=== PATIENT | male | born 1990 | race Caucasian/White ===

== ENCOUNTER 2019-03-28 13:06 | Emergency (ER) | payer OTHER, SELFPAY ==
[2019-03-28 13:11] VITALS: BP 154/82; PULSE 82; RESP 16; TEMP 37.5; O2SAT 100
--- NOTE | 2019-03-28 14:04 | ED.GENADUL_ITS ---
Discharge Plan Disposition Patient Disposition: HOME Discharge Details Chief Complaint: Abd Prob Clinical Impression: Constipation Primary Care Provider: Michael Benitez ED Provider: Pato Prabhakar Home Meds and New Rx's Prescriptions: New docusate sodium [Dulcolax Stool Softener (dss)] 100 mg capsule 100 mg PO BID Qty: 60 RF: 0 Discharge Instructions Instructions: Constipation (ED) Additional Instructions: Please contact your primary care physician to arrange follow-up. Return to the ER for any worsening or new concerning symptoms. Referrals: Michael Benitez. [Primary Care Provider] - Medical Decision Making 29-year-old male here with 4 days of constipation refractory to milk of magnesia and fleets enema. Patient was given a mineral oil enema here and had large bowel movement. He feels much better. Symptoms completely resolved. Labs reviewed and no electrolyte ab normalities. Usual and customary discharge instructions were provided. Patient was encouraged to follow-up with GI specialist regarding chronic intermittent constipation. HPI General Mode of arrival: ambulatory . Date/Time Provider Initiated Documentation: 03/28/19 13:32 . Limitations to Documentation: no limitations . Information obtained by: patient . HPI Narrative: 29-year-old male with history of intermittent chronic constipation, here with constipation. Patient notes he has not had a bowel movement in 4 days. He states that he saw his primary care physician who prescribed a fleets enema and milk of magnesia. He did try this and notes that he had loose stool around what he perceives as a hard stool that still remains in his rectum. He has a sensation of fullness in his rectum like he needs to have a bowel movement and is unable to. Symptoms are severe. He has some associated left lower abdominal discomfort and fullness. Some nausea. No vomiting. Related Data Home Medications Medication Instructions Recorded Confirmed docusate sodium [Dulcolax Stool 100 mg PO BID #60 cap 03/28/19 Softener (dss)] Previous Rx's Medication Instructions Recorded docusate sodium [Dulcolax Stool 100 mg PO BID #60 cap 03/28/19 Softener (dss)] Allergies Allergy/AdvReac Type Severity Reaction Status Date / Time No Known Allergies Allergy Verified 03/28/19 13:15 General Stated Complaint: Abd Prob NATALI: 3 Review of Systems All systems reviewed & are unremarkable except as noted in HPI and below Constitutional Constitutional: Denies fever(s) Gastrointestinal Gastrointestinal: Reports as per HPI, Denies melena, Denies hematochezia and Reports constipation [facility] Medical History Injury of right shoulder and upper arm (Acute) 2017 no surgery required. Surgical History Tonsillectomy and adenoidectomy (11/12/96) Family History Mother No problems noted. Father Asthma Brother No problems noted. Grandfather Essential hypertension Grandfather No problems noted. Grandmother Personal history of malignant neoplasm LYMPHOMA Grandmother No problems noted. Social History Smoking/Tobacco Use Status: Never Alcohol Intake: current Details: only few times a year Drug use: Never Seatbelt use: always Do you feel safe in your relationship?: Yes Exam Const General: cooperative and no acute distress HENMT Mouth: moist mucous membranes Eyes Conjunctivae: normal conjunctivae Sclera: normal sclerae Resp Auscultation: clear to auscultation bilaterally, no rales, no rhonchi and no wheezes Cardio Jugular venous pressure: no JVD Rate: regular rate and not tachycardic Rhythm: regular rhythm GI Palpation: soft, not firm, no guarding, no masses, not rigid and tender in the LLQ; with no rebound tenderness Course Vital Signs Vital signs: Vital Signs Pulse 82 03/28/19 13:11 Respiratory Rate 16 03/28/19 13:11 Blood Pressure 154/82 H 03/28/19 13:11 Pulse Oximetry 100 03/28/19 13:11 Temperature Source Skin 03/28/19 13:11 Pulse 82 03/28/19 13:11 Respiratory Rate 16 03/28/19 13:11 Respiratory Effort Non-Labored 03/28/19 13:11 Blood Pressure 154/82 H 03/28/19 13:11 Blood Pressure Position Sitting 03/28/19 13:11 Pulse Oximetry 100 03/28/19 13:11 Oxygen Delivery Method Room Air 03/28/19 13:11 Oxygen Flow Rate 0 03/28/19 13:11 Pain Level 6 03/28/19 13:11
[2019-03-28] MEDS: Mineral Oil-Enema 133 ML BTL PR (14:07)
[2019-03-28 14:20] LABS: ALT 42 U/L (16-63); AST 23 U/L (15-37); Albumin 4.3 g/dL (3.4-5.0); Alkaline Phosphatase 85 U/L (46-116); BUN 14 mg/dL (7-18); Bilirubin, Total 0.8 mg/dL (0.2-1.0); CREATININE 0.92 mg/dL (0.70-1.30); Calcium 9.3 mg/dL (8.5-10.1); Chloride 103 mmol/L (98-107); Glucose 93 mg/dL (74-106); Potassium 4.1 mmol/L (3.5-5.1); Sodium 141 mmol/L (136-145)
[2019-03-28 14:34] VITALS: BP 129/71; PULSE 67; O2SAT 97
== END 2019-03-28 14:45 | disposition home or self-care (01) ==
PROVIDERS: Emergency Provider Student in an Organized Health Care Education/Training Program; PCP Family Medicine
DX: K59.09 Other constipation (principal)
CPT/HCPCS: 36415; 80053; 99283

== ENCOUNTER 2019-04-10 08:45 | Emergency (ER) | payer OTHER, SELFPAY ==
[2019-04-10 08:48] VITALS: BP 146/66; PULSE 102; RESP 16; TEMP 36.6; O2SAT 96
--- NOTE | 2019-04-10 09:07 | ED.GENADUL_ITS ---
Discharge Plan Disposition Patient Disposition: HOME Condition: Stable Discharge Details Chief Complaint: GI Bleed Clinical Impression: Bleeding hemorrhoid Primary Care Provider: Michael Benitez ED Provider: Mariela Preston Home Meds and New Rx's Prescriptions: Continued docusate sodium [Dulcolax Stool Softener (dss)] 100 mg capsule 100 mg PO BID Qty: 60 RF: 0 Discharge Instructions Instructions: Hemorrhoids (ED), Rectal Bleeding (ED) Additional Instructions: The bleeding associated with your hemorrhoid to stop with time. You can try applying a gauze pressure dressing if you need to help stop bleeding. Continue to take your Colace while hemorrhoids still present. Avoid prolonged standing or sitting. You can take baths if you develop any worsening rectal pain or hemorrhoids. You can continue to take Tylenol or Motrin, use Preparation H or Tucks pads to help with rectal pain. Follow-up with your primary care doctor within the next week for reevaluation. Return to the emergency department if you develop any worsening or new concerning symptoms. Stand Alone Forms: Work Release Discharge Data Discharge Date/Time-TO BE ENTERED AT DEPARTURE: 04/10/19 11:15 Discharge Physician: Mariela Preston Medical Decision Making 0855 -- 29-year-old male with history of recent constipation treated with enema who now presents with bleeding hemorrhoid since yesterday. Patient was seen here 2 weeks ago for constipation and had treated himself with enema at home and then without relief came to the ED for an enema and his constipation resolved. He states around that time he had intermittent dull aching epigastric and lower abdominal pain which he has had since then. He states he has been able to eat and drink normally, denies fever, urinary symptoms. He states 3 days ago, suddenly at 2 AM awoke with a large grape sized very painful hemorrhoid. He states yesterday the hemorrhoid ruptured and he has had significant relief of pain since then but states it has continuously been bleeding. He states he has been able to have bowel movements and had a normal formed bowel movement last night without any blood. He does still admit to the intermittent epigastric and lower abdominal pain. He states the epigastric pain is somewhat worse with eating spicy foods. He denies any heavy alcohol or drug use, urinary symptoms, fever, nausea or vomiting. Patient has an approximate nickel sized flat hemorrhoid with a 1 cm crusted blood clot in center with mild active oozing of blood. There are no signs of cellulitis or trauma. Patient does admit to feeling weak last night. He denies chest pain, shortness of breath, dizziness or syncope. Will check screening labs including hemoglobin, GI labs. Case discussed with Dr. Bucio who agrees that you could cauterize the bleeding hemorrhoid or reassure patient that it will stop bleeding with time. 1100 --labs reviewed and unremarkable. Normal hemoglobin, white blood cell count, electrolytes. Patient denies any acute complaints. Offered to cauterize area but he declines. He was advised to hold pressure if continues bleeding or apply gauze dressing temporarily. He is advised to use sitz baths as needed to help with any further hemorrhoids. He is advised to follow-up with his primary care doctor return here with any worsening symptoms. HPI General Mode of arrival: ambulatory . Date/Time Provider Initiated Documentation: 04/10/19 08:51 . Limitations to Documentation: no limitations . Information obtained by: patient . History of Present Illness 29 year old M presents to the emergency department with the chief complaint of bleeding hemorrhoid w/ some rectal pain, Quality is described as sharp, Patient started experiencing this day(s) (3) and it has been constant. other things that improve symptom(s), (preparation H enema and cream) No exacerbating factors reported . Patient notes denies confusion, chest pain, cough, diaphoresis, fever/chills, headaches, loss of appetite, malaise, nausea/vomiting, rash, seizure, shortness of breath, syncope and weakness. Patient did receive the following treatments prior to arrival, none Related Data Home Medications Medication Instructions Recorded Confirmed docusate sodium [Dulcolax Stool 100 mg PO BID #60 cap 03/28/19 04/10/19 Softener (dss)] Previous Rx's Medication Instructions Recorded docusate sodium [Dulcolax Stool 100 mg PO BID #60 cap 03/28/19 Softener (dss)] Allergies Allergy/AdvReac Type Severity Reaction Status Date / Time No Known Allergies Allergy Verified 04/10/19 08:53 General Stated Complaint: GI Bleed NATALI: 3 Review of Systems All systems reviewed & are unremarkable except as noted in HPI and below Constitutional Constitutional: Reports as per HPI, Denies chills and Denies fever(s) Eyes Eyes: Denies blurry vision ENT Ears, Nose, Mouth, and Throat: Denies dizziness, Denies sore throat and Denies throat swelling Cardiovascular Cardiovascular: Denies chest pain and Denies dyspnea Respiratory Respiratory: Denies cough and Denies dyspnea Gastrointestinal Gastrointestinal: Reports abdominal pain, Denies diarrhea, Denies vomiting and Reports other (bleeding hemorrhoid) Genitourinary Genitourinary: Denies hematuria and Denies dysuria Musculoskeletal Musculoskeletal: Denies back pain and Denies numbness Integumentary/Breasts Skin/Breast: Denies lesions and Denies rash Neurologic Neurologic: Denies dizziness, Denies focal weakness and Denies numbness Allergic/Immunologic Allergic/Immunologic: Denies throat swelling [facility] Medical History Injury of right shoulder and upper arm (Acute) 2017 no surgery required. Surgical History Tonsillectomy and adenoidectomy (11/12/96) Family History Mother No problems noted. Father Asthma Brother No problems noted. Grandfather Essential hypertension Grandfather No problems noted. Grandmother Personal history of malignant neoplasm LYMPHOMA Grandmother No problems noted. Social History Smoking/Tobacco Use Status: Never Alcohol Intake: current Alcohol Intake frequency: holidays/special occasions only Details: only few times a year Drug use: Never Seatbelt use: always Do you feel safe at home: Yes Do you feel safe in your relationship?: Yes Exam Const General: cooperative, healthy appearing and no acute distress HENMT Head: normal to inspection Face and sinus: normal facial exam Eyes General: appearance normal, both eyes and all related structures EOM: EOM intact bilaterally Neck Neck: normal visual inspection and No submandibular swelling Lymphatic: no lymphadenopathy noted Chest Chest: normal inspection of the chest and no tenderness Resp Effort & Inspection: normal respiratory effort and able to speak in complete sentences Auscultation: clear to auscultation bilaterally Cardio Rate: regular rate Rhythm: regular rhythm GI Inspection: normal to inspection Palpation: soft, not firm, not rigid and tender in the epigastrum (minimal ) Auscultation: normal bowel sounds Rectal Exam: other Other: Approximately 1.5 x 1.5 cm flat hemorrhoid with 1 x 1 cm crusted blood clot in center. No signs of surrounding erythema, edema, ecchymosis, induration, fluctuance red streaking, pus drainage. Skin General skin exam: no rashes or lesions noted Neuro General: alert, awake and oriented x3 Cognition: normal cognition Speech: speech normal Motor: muscle tone normal throughout Sensory Exam: no sensory deficits noted Extrem General: normal to inspection, full ROM, normal capillary refill, no calf tenderness bilaterally and no edema Psych Appearance: grossly normal Mental Status: mental status grossly normal Speech and Movement: speech and movement normal Affect: normal affect Course Vital Signs Vital signs: Vital Signs Temperature 97.9 F 04/10/19 08:48 Pulse 102 H 04/10/19 08:48 Respiratory Rate 16 04/10/19 08:48 Blood Pressure 146/66 H 04/10/19 08:48 Pulse Oximetry 96 04/10/19 08:48 Temperature 97.9 F 04/10/19 08:48 Temperature Source Temporal Artery Scan 04/10/19 08:48 Pulse 102 H 04/10/19 08:48 Respiratory Rate 16 04/10/19 08:48 Respiratory Effort Non-Labored 04/10/19 08:52 Blood Pressure 146/66 H 04/10/19 08:48 Blood Pressure Position Sitting 04/10/19 08:48 Pulse Oximetry 96 04/10/19 08:48 Oxygen Delivery Method Room Air 04/10/19 08:48 Oxygen Flow Rate 0 04/10/19 08:48 Pain Level 0 04/10/19 08:48
[2019-04-10 09:43] LABS: Abs Immature Grans 0.01 k/cumm (0.0-0.09); Absolute Basophil Count 0.03 k/cumm (0.0-0.2); Absolute Lymphocyte Count 1.98 k/cumm (1.2-3.4); Absolute Monocyte Count 0.54 k/cumm (0.11-0.7); Absolute Neutrophil Count 3.68 k/cumm (1.2-6.7); Basophils % 0.5; Eosinophils % 1.6; HCT 43.2 % (40.0-50.0); HGB 14.7 g/dL (13.5-17.5); Immature Grans % 0.2; Lymphocytes % 31.2; Mean Corpuscular Hemoglobin 29.2 pg (27.0-33.0); Mean Corpuscular Volume 85.9 fL (80-95); Mean Platelet Volume 9.6 fL (8.0-11.0); Monocytes % 8.5; Platelet Count 258 x1000/uL (130-400); RBC 5.03 m/cumm (4.50-6.00); RBC Distribution Width 12.8 % (11.8-14.1); White Blood Cell Count 6.34 k/cumm (4.4-10.8)
[2019-04-10 09:56] LABS: ALT 36 U/L (16-63); AST 17 U/L (15-37); Albumin 3.9 g/dL (3.4-5.0); Alkaline Phosphatase 76 U/L (46-116); Anion Gap 8.9 mmol/L (3-11); BUN 15 mg/dL (7-18); Bilirubin, Total 0.4 mg/dL (0.2-1.0); CO2 28.1 mmol/L (21.0-32.0); CREATININE 0.98 mg/dL (0.70-1.30); Calcium 9.1 mg/dL (8.5-10.1); Chloride 106 mmol/L (98-107); Glucose 93 mg/dL (74-106); Lipase 180 U/L (73-393); Potassium 3.8 mmol/L (3.5-5.1); Sodium 143 mmol/L (136-145); Total Protein 7.4 g/dL (6.4-8.2)
[2019-04-10 10:41] VITALS: BP 116/62; PULSE 64; TEMP 37.1; O2SAT 97
[2019-04-10 11:17] VITALS: BP 133/80; PULSE 80; RESP 18; O2SAT 98
== END 2019-04-10 11:15 | disposition home or self-care (01) ==
PROVIDERS: Emergency Provider Physician Assistant; PCP Family Medicine
DX: K62.89 Other specified diseases of anus and rectum (principal); K64.5 Perianal venous thrombosis
CPT/HCPCS: 36415; 80053; 83690; 99283; 85025

== ENCOUNTER 2021-12-19 07:29 | Emergency (ER) | payer OTHER, SELFPAY ==
[2021-12-19 07:33] VITALS: BP 137/76; PULSE 66; RESP 16; TEMP 35.9; O2SAT 100
--- NOTE | 2021-12-19 08:21 | ED.GENADUL_ITS ---
Discharge Plan Disposition Patient Disposition: HOME Condition: Good Discharge Details Chief Complaint: Laceration Clinical Impression: Laceration of left index finger, Laceration of left middle finger, Laceration of left ring finger Primary Care Provider: Michael Benitez ED Provider: Jamarcus Kerr Home Meds and New Rx's Prescriptions: No Action No Known Home Meds Discharge Instructions Instructions: Finger Laceration (ED) Additional Instructions: Please leave the dressing on for 24 hours, then you may remove and begin cleaning the wound at least twice a day with soap and water. Do not directly soak the area. Watch for any signs of infection and return if any increasing redness, swelling, pain, drainage. Please return in the next 7 to 10 days to sal[place] ve the sutures removed. You can come back here and that will be done for free. If you notice any worsening of your symptoms, or any new symptoms such as vomiting, diarrhea, fever, chills, shortness of breath, chest pain, numbness, weakness, or fainting , please return immediately to the emergency department for reevaluation. Please follow up with your primary care provider as soon as possible for reassessment and reevaluation. As always, it was a pleasure participating in your medical care today. Referrals: Michael Benitez MD [Primary Care Provider] - Medical Decision Making 31-year-old male who is right-hand dominant presents today for evaluation of lacerations to his nondominant left hand. He was grabbing a roll of duct tape when he noticed it with a razor blade on it. He had a laceration that developed secondary to accidentally grabbing the razor blade. He came to the ER for further evaluation. Tetanus was last updated over 10 years ago. He denies any numbness or tingling or weakness. He denies any other complaints at this time. Patient demonstrates a 1.5 to 2 cm laceration on the proximal phalanx of the second third and fourth digits. No active bleeding at this time. No evidence of tendon involvement. The lacerations were deep enough that they required suturing. 2 simple interrupted sutures were placed in the second digit, 1 simple interrupted was placed in the third, and 2 simple interrupted's were placed in the fourth. Dermabond was applied over these areas. Patient tole rated this well. No evidence of neurovascular compromise whatsoever. Patient stable for discharge. Tetanus has been updated. Discussed red flags for which to return. I have extensively reviewed the treatment plan and discharge instructions with the patient. I have addressed all patient concerns at this time. The patient was made aware of what symptoms to monitor for that would warrant a return to the emergency department. Discussed the plan with the patient, they demonstrate verbal understanding and agreement with our assessment and plan at this time. The documentation in this chart was dictated using [employer] dictation software. Please excuse any dictation errors. HPI General Date/Time Provider Initiated Documentation: 12/19/21 07:30 . HPI Narrative: 31-year-old male who is right-hand dominant presents today for evaluation of lacerations to his nondominant left hand. He was grabbing a roll of duct tape when he noticed it with a razor blade on it. He had a laceration that developed secondary to accidentally grabbing the razor blade. He came to the ER for further evaluation. Tetanus was last updated over 10 years ago. He denies any numbness or tingling or weakness. He denies any other complaints at this time. Related Data Home Medications Medication Instructions Recorded Confirmed Unknown [No Known Home Meds] 07/14/20 12/19/21 Allergies Allergy/AdvReac Type Severity Reaction Status Date / Time No Known Allergies Allergy Verified 12/19/21 07:36 General Stated Complaint: Laceration NATALI: 4 Review of Systems All systems reviewed & are unremarkable except as noted in HPI and below PFSH All Active Problems Laceration of left index finger (Acute) Laceration of left middle finger (Acute) Laceration of left ring finger (Acute) Medical History Injury of right shoulder and upper arm 2017 no surgery required. Surgical History Tonsillectomy and adenoidectomy (11/12/96) Family History Mother No problems noted. Father Asthma Brother No problems noted. Grandfather Essential hypertension Grandfather No problems noted. Grandmother Personal history of malignant neoplasm LYMPHOMA Grandmother No problems noted. Social History Smoking/Tobacco Use Status: Never Smoking risk assessment performed?: Yes Alcohol Intake: current Alcohol Intake frequency: holidays/special occasions only Details: only few times a year Drug use: Never Seatbelt use: always Do you feel safe at home: Yes Do you feel safe in your relationship?: Yes Exam Narrative Exam Narrative: 1.Const: Well-nourished, Well-developed, appearing stated age 2.Eyes: PERRL, no conjunctival injection, and symmetrical lids. 3.ENT: Atraumatic external nose and ears. Moist MM. Neck: Symmetric, trachea midline, No thyromegaly. 4.CVS: +S1/S2, No murmurs or gallops. Peripheral pulses 2+ and equal in all extremities. Brisk capillary refill in all extremities. 5.RESP: Unlabored respiratory effort. Clear to auscultation bilaterally. No wheezes rales or rhonchi 6.GI: Soft, Nontender/Nondistended, No hepatosplenomegaly. No guarding or rebound. 7.MSK: Normocephalic, Extremities w/o deformity, patient demonstrates a 1.5 to 2 cm laceration at the proximal component of the phalanx on the left hand for the second third and fourth digits. It is on the palmar aspect. Patient demonstrates excellent flexion and extension strength. Lacerations are relatively superficial with no evidence of tendon or bone involvement. No active bleeding at this time. Small excoriation is noted on the fifth digit. No laceration is noted on the thumb. Patient demonstrates brisk capillary refill on the distal tips of all fingers. 8.Skin: Warm, Dry. No rashes or lesions. Please see musculoskeletal 9.Neuro: switching clerk II-XII grossly intact. Sensation grossly intact, no focal neurologic deficits. Intact sensation, including excellent two-point discrimination on the distal tips of all fingers on the affected hand. 10.Psych: (AAO) x3. Appropriate mood and affect Course Vital Signs Vital signs: Vital Signs Temperature 35.9 C L 12/19/21 07:33 Pulse 66 12/19/21 07:33 Respiratory Rate 16 12/19/21 07:33 Blood Pressure 137/76 12/19/21 07:33 Pulse Oximetry 100 12/19/21 07:33 Temperature 35.9 C L 12/19/21 07:33 Temperature Source Temporal Artery Scan 12/19/21 07:33 Pulse 66 12/19/21 07:33 Respiratory Rate 16 12/19/21 07:33 Respiratory Effort 12/19/21 07:38 Blood Pressure 137/76 12/19/21 07:33 Blood Pressure Position Sitting 12/19/21 07:33 Pulse Oximetry 100 12/19/21 07:33 Oxygen Delivery Method Room Air 12/19/21 07:33 Oxygen Flow Rate 0 12/19/21 07:33 Pain Level 5 12/19/21 07:38 Procedures Laceration Laceration 1: Site: other (Left hand second digit) Side (If applicable): left Size (cm): 1.5 Description: linear Depth: simple, single layer Local Anesthetic: Lidocaine 1% Amount of anesthesia used (mL): 1 Pre-repair: wound explored, irrigated extensively and deep structures intact Skin layer closed with: nylon Size (cm): 4-0 Number of sutures: 2 Technique: simple, interrupted Laceration 2: Site: other (Left hand third digit) Side (If applicable): left Size (cm): 1 Description: linear Depth: simple, single layer Local Anesthetic: Lidocaine 1% Amount of anesthesia used (mL): 1 Pre-repair: wound explored, irrigated extensively and deep structures inta ct Skin layer closed with: nylon Size (cm): 4-0 Number of sutures: 1 Technique: simple, interrupted Laceration 3: Site: other (Left hand fourth digit) Side (If applicable): left Size (cm): 2 Description: linear Depth: simple, single layer Local Anesthetic: Lidocaine 1% Amount of anesthesia used (mL): 2 Pre-repair: wound explored, irrigated extensively and deep structures intact Skin layer closed with: nylon Size (cm): 4-0 Number of sutures: 2 Technique: simple, interrupted
== END 2021-12-19 08:31 | disposition home or self-care (01) ==
PROVIDERS: Emergency Provider Student in an Organized Health Care Education/Training Program; PCP Family Medicine
DX: S61.211A Laceration without foreign body of left index finger without damage to nail, initial encounter (principal); S61.213A Laceration without foreign body of left middle finger without damage to nail, initial encounter; S61.215A Laceration without foreign body of left ring finger without damage to nail, initial encounter; W26.8XXA Contact with other sharp object(s), not elsewhere classified, initial encounter
CPT/HCPCS: 12002; 90471

== ENCOUNTER 2021-12-29 07:29 | Emergency (ER) | payer OTHER, SELFPAY ==
[2021-12-29 07:34] VITALS: PULSE 72; RESP 16; TEMP 36.8; O2SAT 98
--- NOTE | 2021-12-29 07:41 | W.ED.GENAD ---
Discharge Plan Disposition Patient Disposition: HOME Condition: Good Discharge Details Chief Complaint: SutureRem Clinical Impression: Visit for suture removal Primary Care Provider: Michael Benitez ED Provider: Jamarcus Kerr Home Meds and New Rx's Prescriptions: No Action No Known Home Meds Discharge Instructions Additional Instructions: Your sutures were removed successfully. Please continue to be gentle with your fingers for the next 5 days as the skin finalizes its healing. If you notice any redness drainage or discharge please return for reassessment. If you notice any worsening of your symptoms, or any new symptoms such as vomiting, diarrhea, fever, chills, shortness of breath, chest pain, numbness, weakness, or fainting , please return immediately to the emergency department for reevaluation. Please follow up with your primary care provider as soon as possible for reassessment and reevaluation. As always, it was a pleasure participating in your medical care today. Referrals: Michael Benitez MD [Primary Care Provider] - Medical Decision Making 31-year-old male who presents for suture removal. 10 days ago I sutured his fingers after experiencing multiple lacerations leading to 5 simple interrupted suture placement. He returns today with no complaints. Mild tenderness over one of the fingers at the suture site, but no redness drainage or discharge. No complaints otherwise. 5 sutures were removed without complication. Patient tolerated this well. Wound edges are well-healed, with excellent skin reapproximation, no signs of dehiscence, drainage, discharge or infection. Patient will be discharged home. Discussed red flags which return. I have extensively reviewed the treatment plan and discharge instructions with the patient. I have addressed all patient concerns at this time. The patient was made aware of what symptoms to monitor for that would warrant a return to the emergency department. Discussed the plan with the patient, they demonstrate verbal understanding and agreement with our assessment and plan at this time. The documentation in this chart was dictated using [employer] dictation software. Please excuse any dictation errors. HPI General Date/Time Provider Initiated Documentation: 12/29/21 07:30. HPI Narrative: 31-year-old male who presents for suture removal. 10 days ago I sutured his fingers after experiencing multiple lacerations leading to 5 simple interrupted suture placement. He returns today with no complaints. Mild tenderness over one of the fingers at the suture site, but no redness drainage or discharge. No complaints otherwise. Related Data Home Medications Medication Instructions Recorded Confirmed Unknown [No Known Home Meds] 07/14/20 12/19/21 Allergies Allergy/AdvReac Type Severity Reaction Status Date / Time No Known Allergies Allergy Verified 12/19/21 07:36 General Stated Complaint: SutureRem NATALI: 4 Review of Systems All systems reviewed & are unremarkable except as noted in HPI and below PFSH All Active Problems Laceration of left index finger (Acute) Laceration of left middle finger (Acute) Laceration of left ring finger (Acute) Visit for suture removal (Acute) Medical History Injury of right shoulder and upper arm 2017 no surgery required. Surgical History Tonsillectomy and adenoidectomy (11/12/96) Family History Mother No problems noted. Father Asthma Brother No problems noted. Grandfather Essential hypertension Grandfather No problems noted. Grandmother Personal history of malignant neoplasm LYMPHOMA Grandmother No problems noted. Social History Smoking/Tobacco Use Status: Never Smoking risk assessment performed?: Yes Alcohol Intake: current Alcohol Intake frequency: holidays/special occasions only Details: only few times a year Drug use: Never Substance use type: does not use Seatbelt use: always Do you feel safe at home: Yes Do you feel safe in your relationship?: Yes Exam Narrative Exam Narrative: 1.Const: Well-nourished, Well-developed, appearing stated age 2.Eyes: PERRL, no conjunctival injection, and symmetrical lids. 3.ENT: Atraumatic external nose and ears. Moist MM. Neck: Symmetric, trachea midline, No thyromegaly. 4.CVS: +S1/S2, No murmurs or gallops. Peripheral pulses 2+ and equal in all extremities. Brisk capillary refill in all extremities. 5.RESP: Unlabored respiratory effort. Clear to auscultation bilaterally. No wheezes rales or rhonchi 6.GI: Soft, Nontender/Nondistended, No hepatosplenomegaly. No guarding or rebound. 7.MSK: Normocephalic/Atraumatic, Extremities w/o deformity or ttp No cyanosis or clubbing, Normal movement of all extremities. All fingers demonstrate excellent skin healing, no signs of dehiscence whatsoever. No redness or swelling. Normal sensation. Good capillary refill. No evidence of infection or ligamentous damage. 8.Skin: Warm, Dry. No rashes or lesions. 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 Sensation grossly intact, no focal neurologic deficits. 10.Psych: (AAO) x3. Appropriate mood and affect Course Vital Signs Vital signs: Vital Signs Temperature 36.8 C 12/29/21 07:34 Pulse 72 12/29/21 07:34 Respiratory Rate 16 12/29/21 07:34 Pulse Oximetry 98 12/29/21 07:34 Temperature 36.8 C 12/29/21 07:34 Pulse 72 12/29/21 07:34 Respiratory Rate 16 12/29/21 07:34 Respiratory Effort 12/29/21 07:35 Pulse Oximetry 98 12/29/21 07:34
== END 2021-12-29 07:44 | disposition home or self-care (01) ==
PROVIDERS: Emergency Provider Student in an Organized Health Care Education/Training Program; PCP Family Medicine
DX: S61.219D Laceration without foreign body of unspecified finger without damage to nail, subsequent encounter (principal); X58.XXXD Exposure to other specified factors, subsequent encounter
CPT/HCPCS: 99281; 99282

== ENCOUNTER 2024-03-02 01:47 | Outpatient (CLI) | payer OTHER, SELFPAY ==
[2024-03-02 13:33] LABS: Calculated LDL 82 mg/dL (<100); Cholesterol 141 mg/dL (<200); Glucose 88 mg/dL (74-106); HDL Cholesterol 45 mg/dL (40-60); Triglyceride 72 mg/dL (<150)
== END 2024-03-02 01:48 | disposition home or self-care (01) ==
LOC: LOS 01:48
PROVIDERS: PCP Family Medicine; Visit Provider Family Medicine
DX: R73.9 Hyperglycemia, unspecified (principal); E78.5 Hyperlipidemia, unspecified
CPT/HCPCS: 36415; 80061; 82947

== ENCOUNTER 2024-05-28 08:22 | Emergency (ER) | payer OTHER, SELFPAY ==
[2024-05-28 08:35] VITALS: BP 137/97; PULSE 76; RESP 18; TEMP 36.8; O2SAT 98
--- NOTE | 2024-05-28 08:38 | W.ED.GENAD ---
Discharge Plan Disposition Patient Disposition: Home Condition: Stable Discharge Details Clinical Impression: Abdominal pain of unknown cause Primary Care Provider: Michael Benitez ED Provider: Jamarcus Levine Home Meds and New Rx's Prescriptions: No Action No Known Home Meds Discharge Instructions Instructions: Abdominal Pain, Adult ED Additional Instructions: You were seen in the emergency department for abdominal pain in the right lower quadrant as well as scrotum, there is no evidence for any infection in your urine or other lab work, your liver and kidney enzymes are normal. Your CT scan is completely negative for any hernia or appendicitis, there is no evidence of any bowel abnormality. I am not sure what is causing her pain but I am sure that there is nothing emergent going on at this time, please return for reevaluation for any significant dynamic changes in your condition especially with fever, severe abdominal pain, changes to bowel and stool habits or urinary habits or any other emergent concerns. Stand Alone Forms: Work Release Referrals: Michael Benitez MD [Primary Care Provider] - Discharge Data Discharge Date/Time-TO BE ENTERED AT DEPARTURE: 05/28/24 11:49 HPI General Date/Time Provider Initiated Documentation: 05/28/24 08:38. HPI Narrative: 34 year-old male presents to ED today by POV/ambulating with a chief complaint of RLQ abdominal pain, radiating into scrotum somewhat, lifts heavy objects at work with onset for the past week or slightly more. Quality described as R sided abdominal pain, no radiation to bowel/urinary changes, fever, nausea/vomiting, chest pain, shortness of breath. Severity is described as moderate. Palliating factors include took MiraLax for trial of relief of constipation without much change. Provoking factors include nothing specific. Events leading up to the incident/Associated Symptoms: Patient has no prior abdominal surgical history. Patient not anticoagulated. Related Data Home Medications ?Medication ?Instructions ?Recorded ?Confirmed Unknown [No Known Home Meds] 07/14/20 05/28/24 Allergies Allergy/AdvReac Type Severity Reaction Status Date / Time No Known Allergies Allergy Verified 05/28/24 08:36 General Stated Complaint: Abd Prob NATALI: 3 Review of Systems All systems reviewed & are unremarkable except as noted in HPI and below Exam Narrative Exam Narrative: GENERAL APPEARANCE: Well-nourished, non-toxic, awake and alert, atraumatic, no acute distress. SKIN: Warm, pink, dry, intact, without rashes/lesions/ulcerations. HEAD: Normocephalic, atraumatic, normal hair distribution for gender/age. EYES: Normal conjunctiva, no exudates on lids/lashes. ENT: Nares patent, no circumoral cyanosis, no facial swelling NECK: Supple, trachea midline, painless cervical ROM. LUNGS/CHEST: Lungs CTA bilaterally, non-labored respirations, normal A/P diameter, symmetrical expansion, no chest wall deformity HEART (CV/PV): Regular rate and rhythm without murmur, no peripheral edema, no JVD. ABDOMEN: Soft, non-distended, no guarding, RLQ tenderness - endorses rebound tenderness, negative Sarkar's, no CVA tenderness to percussion bilaterally, no scrotal swelling, no inguinal hernia palpated, normal external male genitalia. MSK: Normal ROM, no swelling/deformity to bilateral UEs or LEs, moving all extremities without weakness, no cyanosis, spine midline without tenderness, normal curvature. NEURO: Mental Status AAOx4 - alert to person, place, time, events No facial droop, no forehead involvement. Motor: No focal weakness - strength 5/5 in bilateral UEs and LEs, proximal and distal, symmetric. Sensory: sensation intact to light touch globally. Gait normal: patient ambulated without ataxia into ED room. PSYCH: euthymic, cooperative, pleasant, appropriate speech Course Vital Signs Vital signs: Vital Signs Temperature 36.8 C 05/28/24 08:35 Pulse 76 05/28/24 08:35 Respiratory Rate 18 05/28/24 08:35 Blood Pressure 137/97 H 05/28/24 08:35 Pulse Oximetry 98 05/28/24 08:35 Temperature 36.8 C 05/28/24 08:35 Temperature Source Oral 05/28/24 08:35 Pulse 76 05/28/24 08:35 Respiratory Rate 18 05/28/24 08:35 Blood Pressure 137/97 H 05/28/24 08:35 Blood Pressure Position Sitting 05/28/24 08:35 Pulse Oximetry 98 05/28/24 08:35 Oxygen Delivery Method Room Air 05/28/24 08:35 Oxygen Flow Rate 0 05/28/24 08:35 Pain Level 5 05/28/24 08:35 Medical Decision Making This dictation utilizes [id number] dictation software and may contain unedited grammatical errors. 34 year-old male presents to ED today by POV/ambulating with a chief complaint of RLQ abdominal pain, radiating into scrotum somewhat, lifts heavy objects at work with onset for the past week or slightly more. Quality described as R sided abdominal pain, no radiation to bowel/urinary changes, fever, vomiting, chest pain, shortness of breath. Severity is described as moderate. Palliating factors include took MiraLax for trial of relief of constipation without much change. Provoking factors include nothing specific. Events leading up to the incident/Associated Symptoms: Patient has no prior abdominal surgical history. Patients' medical history: Noncontributory. Family and social history: Eats a normal diet. Pertinent exam findings / vital signs include this with RLQ tenderness with rebound tenderness, no scrotal swelling or tenderness/erythema, negative Sarkar's sign, benign cardiopulmonary status Differential / pathologies of concern include appendicitis, hernia, abdominal muscle strain, gastroenteritis. Diagnostic studies of: -CBC, CMP, lactate, lipase, UA, CT ABD/pelvis W contrast. -CBC shows no leukocytosis -CMP benign without actionable abnormality -Lactate negative, do not suspect bowel ischemia/incarcerated hernia -Lipase WNL -UA benign -CT shows no acute pathology Interventions of: -4mg IVP Zofran. ED Course/Assessment/Plan: 34-year-old male presents with right lower quadrant abdominal pain and some scrotal pain ongoing for a week, his urine shows no signs of infection, his electrolytes are normal, he has no evidence of hernia or incarceration on CT, no evidence of appendicitis, he had tried a week of MiraLAX without relief, he does lift heavy things at work I think the most likely diagnosis is abdominal wall muscle strain but I stressed strict return criteria for negative changes, especially with fever, intractable nausea or vomiting, severe increase in pain. Findings not consistent with incarcerated hernia, infection, renal colic, sepsis, SBO, appendicitis. Disposition of Abdominal Pain of Unknown Cause. Patient verbalized understanding of the plan and return to ED criteria and engaged in shared decision making. Medical Records Medical records reviewed: Yes I reviewed the patient's medical records. Imaging Data Radiologic Study: Attestation: I personally reviewed and interpreted this imaging study as follows: Imaging: CT Scan Radiologist's impression: EXAM: CT ABDOMEN PELVIS W CLINICAL HISTORY: RLQ tenderness, appy vs hernia. TECHNIQUE: Imaging Protocol: Axial computed tomography images with coronal and sagittal reformatted images were created and reviewed CONTRAST MATERIAL: Intravenous: Omnipaque-350 100cc Oral: None COMPARISON: No exams were available for comparison FINDINGS: VISUALIZED LUNG BASES: No nodules nor pleural effusions evident. ABDOMEN: There is no ascites. LIVER: There are no focal hepatic lesions evident. No dilated intrahepatic ducts. GALLBLADDER/BILIARY: No obvious gallbladder pathology. CBD is not dilated. PANCREAS: No evidence of pancreatic mass nor dilatation of the pancreatic duct. SPLEEN: Spleen is not enlarged. No obvious intrasplenic lesions. Splenic and portal veins are patent. ADRENALS: There are no significant adrenal masses. KIDNEYS:No cysts evident. No solid renal masses. No calculi nor hydronephrosis.. ABDOMINAL AORTA: Abdominal aorta is not enlarged. LYMPH NODES:There is no retroperitoneal nor paraaortic adenopathy. ABDOMINAL WALL: No evidence of significant anterior abdominal wall nor inguinal hernia. GI: There is no evidence of bowel obstruction, free air, nor abscess. PELVIS: GI: No evidence of appendicitis.No evidence of sigmoid diverticulitis. LYMPH NODES: There is no intrapelvic nor inguinal adenopathy. REPRODUCTIVE: Prostate not enlarged. Seminal vesicles unremarkable. URINARY BLADDER: No calculi nor obvious masses evident OSSEOUS: No fractures and no significant osseous lesions. IMPRESSION: 1. No significant findings on this CT scan of the abdomen pelvis. 2. No evidence of acute appendicitis, as per request. Lab Data Lab results reviewed: Yes I reviewed the patient's lab results. Labs: Laboratory Tests Range/Units 05/28/24 05/28/24 09:29 10:02 WBC (4.4-10.8) 10^3/uL 8.21 RBC (4.36-5.78) 10^6/uL 5.12 Hgb (13.5-17.5) g/dL 15.1 Hct (40.0-50.0) % 44.0 MCV (80-95) fL 86 MCH (27.0-33.0) pg 29.5 MCHC (32.0-36.0) % 34.3 RDW (11.8-14.1) % 12.1 Plt Count (130-400) 10^3/uL 250 MPV (8.0-11.0) fL 9.4 Immature Gran % % 0.2 Neutrophils % % 57.4 Lymphocytes % % 32.2 Monocytes % % 7.6 Eosinophils % % 1.9 Basophils % % 0.7 Nucleated RBC % (0.0-0.3) % 0.0 Absolute Neutrophils (1.2-6.7) 10^3/uL 4.71 Absolute Lymphocytes (1.2-3.4) 10^3/uL 2.64 Absolute Monocytes (0.1-0.8) 10^3/uL 0.62 Absolute Eosinophils (0.0-0.7) 10^3/uL 0.16 Absolute Basophils (0.0-0.2) 10^3/uL 0.06 VBG Lactate (<or=2.0) mmol/L 0.8 Sodium (136-145) mmol/L 145 Potassium (3.5-5.1) mmol/L 4.3 Chloride (98-107) mmol/L 109 H Carbon Dioxide (21.0-32.0) mmol/L 26.7 Anion Gap (3-11) mmol/L 9.3 BUN (7-18) mg/dL 14 Creatinine (0.70-1.30) mg/dL 1.0 Est GFR (CKD-EPI 2020) (mL/min/1.73m2) 102.55 Glucose (74-106) mg/dL 92 Calcium (8.5-10.1) mg/dL 9.4 Total Bilirubin (0.2-1.0) mg/dL 0.44 AST (15-37) U/L 16 ALT (16-63) U/L 41 Alkaline Phosphatase (46-116) U/L 70 Total Protein (6.4-8.2) g/dL 7.4 Albumin (3.4-5.0) g/dL 4.0 Lipase (<78) U/L 52 Urine Color (Yellow) Yellow Urine Clarity (Clear) Clear Urine pH (5-8) 5.5 Ur Specific [place] (1.005-1.025) >= 1.030 H Urine Protein (Neg-Trace) mg/dL Negative Urine Ketones (Negative) mg/dL Negative Urine Blood (Negative) Negative Urine Nitrite (Negative) Negative Urine Bilirubin (Negative) Negative Urine Urobilinogen (Up to 0.2) mg/dL 0.2 Ur Leukocyte Esterase (Negative) Negative Urine Glucose (Negative) mg/dL Negative Quality:SDOH Health Related Social Needs: Health related social needs details none PFSH All Active Problems (Updated 05/28/24 @ 11:39 by MIRANDA Hernandez) Abdominal pain of unknown cause (Acute) Obesity (BMI 30-39.9) (Acute) Varicose veins of right lower extremity (Acute) Medical History (Updated 05/28/24 @ 11:39 by MIRANDA Hernandez) Internal hemorrhoids (03/18/17) Injury of right shoulder and upper arm 2017 no surgery required. Surgical History (Updated 01/05/24 @ 15:31 by Michael Benitez MD) Status post tonsillectomy and adenoidectomy Tonsillectomy and adenoidectomy (11/12/96) Family History (Updated 01/06/24 @ 09:20 by Monse Ashraf) Mother Breast cancer Hypertension Father Asthma Maternal Grandfather Essential hypertension Hyperlipidemia Maternal Grandmother Personal history of malignant neoplasm LYMPHOMA Cancer Hyperlipidemia Paternal Grandfather No problems noted. Paternal Grandmother No problems noted. Social History (Updated 01/11/24 @ 10:48 by Monse Ashraf) Smoking/Tobacco Use Status: Never Second Hand Exposure: Yes Smoking risk assessment performed?: Yes Alcohol Intake: current Alcohol Intake frequency: holidays/special occasions only Alcohol type: beer and hard liquor Details: 6 or more drinks monthly or less Drug use: Never Substance use type: does not use Counseling given: No Household members: significant other and children Communication Needs: None Do you need help understanding health information?: Never Pets and animals: Yes Pets and animals: cat(s) and dog(s) Sexually active: Yes Do you think of yourself as: straight/heterosexual Current gender identity: male What is your relationship status?: living with partner How often do you talk on the phone with friends or family?: once per week How often do you get together with friends or relatives?: once per week How often do you attend caodaism or pentecostalism services?: decline to answer Do you belong to any clubs or organized social groups?: no Panel score (0-1 are the most socially isolated patients): 1 What type of physical activity do you participate in: none Arlin/Sabianist: No preference Special arlin needs: No Seatbelt use: always Do you feel safe at home: Yes Do you feel safe in your relationship?: Yes
--- NOTE | 2024-05-28 08:45 | DI.CT_ITS ---
Exam(s) CT ABDOMEN PELVIS W EXAM: CT ABDOMEN PELVIS W CLINICAL HISTORY: RLQ tenderness, appy vs hernia. TECHNIQUE: Imaging Protocol: Axial computed tomography images with coronal and sagittal reformatted images were created and reviewed CONTRAST MATERIAL: Intravenous: Omnipaque-350 100cc Oral: None COMPARISON: No exams were available for comparison FINDINGS: VISUALIZED LUNG BASES: No nodules nor pleural effusions evident. ABDOMEN: There is no ascites. LIVER: There are no focal hepatic lesions evident. No dilated intrahepatic ducts. GALLBLADDER/BILIARY: No obvious gallbladder pathology. CBD is not dilated. PANCREAS: No evidence of pancreatic mass nor dilatation of the pancreatic duct. SPLEEN: Spleen is not enlarged. No obvious intrasplenic lesions. Splenic and portal veins are paten t. ADRENALS: There are no significant adrenal masses. KIDNEYS:No cysts evident. No solid renal masses. No calculi nor hydronephrosis.. ABDOMINAL AORTA: Abdominal aorta is not enlarged. LYMPH NODES:There is no retroperitoneal nor paraaortic adenopathy. ABDOMINAL WALL: No evidence of significant anterior abdominal wall nor inguinal hernia. GI: There is no evidence of bowel obstruction, free air, nor abscess. PELVIS: GI: No evidence of appendicitis.No evidence of sigmoid diverticulitis. LYMPH NODES: There is no intrapelvic nor inguinal adenopathy. REPRODUCTIVE: Prostate not enlarged. Seminal vesicles unremarkable. URINARY BLADDER: No calculi nor obvious masses evident OSSEOUS: No fractures and no significant osseous lesions. IMPRESSION: 1. No significant findings on this CT scan of the abdomen pelvis. 2. No evidence of acute appendicitis, as per request. Called by myself to ER provider 05/28/2024 11:30 a.m. RADIATION DOSE DELIVERED: 840.89mGy.cm Total DLP DATA REPOSITORY: All CT scans at this facility are submitted to the National Radiology Data Registry (NRDR) Dose Index Registry (DIR) with the [employer] (ACR). RADIATION OPTIMIZATION: All CT scans at this facility use at least one of these dose optimization te chniques: automated exposure control; mA and/or kV adjustment per patient size (includes targeted exa ms where dose is matched to clinical indication); or iterative reconstruction.
[2024-05-28 09:52] LABS: Bilirubin Negative (Negative); Blood Negative (Negative); Clarity Clear (Clear); Glucose Negative (Negative); Ketones Negative (Negative); Leukocyte Esterase Negative (Negative); Nitrite Negative (Negative); Specific Gravity >= 1.030 (1.005-1.025); Urobilinogen 0.2 mg/dL (Up to 0.2); pH 5.5 (5-8)
[2024-05-28 10:06] LABS: Lactate 0.8 mmol/L (<or=2.0)
[2024-05-28 10:07] LABS: Abs Immature Grans 0.02 10^3/uL (0.0-0.06); Absolute Basophil Count 0.06 10^3/uL (0.0-0.2); Absolute Eosinophil Count 0.16 10^3/uL (0.0-0.7); Absolute Lymphocyte Count 2.64 10^3/uL (1.2-3.4); Absolute Monocyte Count 0.62 10^3/uL (0.1-0.8); Absolute Neutrophil Count 4.71 10^3/uL (1.2-6.7); Basophils % 0.7 %; Eosinophils % 1.9 %; HGB 15.1 g/dL (13.5-17.5); Immature Grans % 0.2 %; Lymphocytes % 32.2 %; MCH 29.5 pg (27.0-33.0); MCHC 34.3 % (32.0-36.0); MCV 86 fL (80-95); MPV 9.4 fL (8.0-11.0); Monocytes % 7.6 %; Neutrophils % 57.4 %; Platelet Count 250 10^3/uL (130-400); RBC 5.12 10^6/uL (4.36-5.78); RDW 12.1 % (11.8-14.1); WBC 8.21 10^3/uL (4.4-10.8)
[2024-05-28] MEDS: Ondansetron 4 MG/2 ML VIAL IVP (10:20)
[2024-05-28 10:29] LABS: ALT 41 U/L (16-63); AST 16 U/L (15-37); Alkaline Phosphatase 70 U/L (46-116); Anion Gap 9.3 mmol/L (3-11); BUN 14 mg/dL (7-18); Bilirubin, Total 0.44 mg/dL (0.2-1.0); CO2 26.7 mmol/L (21.0-32.0); Chloride 109 mmol/L (98-107); Estimated GFR 102.55 (mL/min/1.73m2); Glucose 92 mg/dL (74-106); Lipase 52 U/L (<78); Potassium 4.3 mmol/L (3.5-5.1); Sodium 145 mmol/L (136-145); Total Protein 7.4 g/dL (6.4-8.2)
[2024-05-28 10:34] LABS: Calcium 9.4 mg/dL (8.5-10.1)
[2024-05-28] MEDS: Normal Saline - Diluent 50 ML VIAL IJ (10:56)
[2024-05-28] MEDS: Omnipaque 350 MG/ML 100 ML BTL IJ (10:57)
[2024-05-28 11:40] VITALS: BP 114/62; PULSE 66; RESP 16; TEMP 36.6; O2SAT 96
--- NOTE | 2024-05-29 10:32 | NUR.NOTE ---
Nursing Note: The patient was here yesterday for evaluation of abdominal pain with no causes found. Pt went to urgent care in [place] today. The provider at called to get the results of the CT scan and urine that was obtained while he was here.
== END 2024-05-28 11:49 | disposition home or self-care (01) ==
PROVIDERS: Emergency Provider Physician Assistant; PCP Family Medicine
DX: R10.31 Right lower quadrant pain (principal); N50.82 Scrotal pain
CPT/HCPCS: 36415; 80053; 83690; 96374; 99285; 74177; 81003; 83605; 85025; 99284; J2405; J3490

== ENCOUNTER 2024-08-12 12:02 | Emergency (ER) | payer OTHER, SELFPAY ==
[2024-08-12 12:06] VITALS: BP 148/88; PULSE 87; RESP 12; TEMP 37.5; O2SAT 97
--- NOTE | 2024-08-12 12:16 | W.ED.GENAD ---
Discharge Plan Disposition Patient Disposition: Home Condition: Stable Discharge Details Chief Complaint: Vascular Clinical Impression: Right calf pain Primary Care Provider: Michael Benitez ED Provider: James Manuel Home Meds and New Rx's Prescriptions: No Action No Known Home Meds Discharge Instructions Additional Instructions: You had a screening test called a D-dimer done which was negative. I placed an order for you to return to have an ultrasound done. Keeping compression on the area and keeping it elevated can help. If you develop any new symptoms such as difficulty breathing or chest pain or feel more ill return to the emergency department for reevaluation HPI General Mode of arrival: ambulatory. Date/Time Provider Initiated Documentation: 08/12/24 12:04. Limitations to Documentation: no limitations. Information obtained by: patient. History of Present Illness 34 year old M presents to the emergency department with the chief complaint of right calf pain, described as moderate, Quality is described as aching, and is localized to the right and lower extremity. Patient reports no radiation. Patient started experiencing this day(s) (1) and it has been constant. No relieving factors improve symptom(s), No exacerbating factors reported . Patient notes no other symptoms.. Patient did receive the following treatments prior to arrival, none Related Data Home Medications ?Medication ?Instructions ?Recorded ?Confirmed Unknown [No Known Home Meds] 07/14/20 08/12/24 Allergies Allergy/AdvReac Type Severity Reaction Status Date / Time No Known Allergies Allergy Verified 08/12/24 12:10 General Stated Complaint: Vascular NATALI: 3 Review of Systems All systems reviewed & are unremarkable except as noted in HPI and below Constitutional Constitutional: Denies chills, Denies fever(s) and Denies weakness Cardiovascular Cardiovascular: Denies chest pain and Denies dyspnea Respiratory Respiratory: Denies cough and Denies dyspnea Gastrointestinal Gastrointestinal: Denies abdominal pain and Denies vomiting Musculoskeletal Musculoskeletal: Reports other (calf pain) Neurologic Neurologic: Denies weakness Psychiatric Psychiatric: Denies depression Exam Const General: no acute distress Orientation: alert [facility] Head: normal to inspection Ears: external ears normal General nose exam: external nose normal Mouth: moist mucous membranes Eyes General: appearance normal, both eyes and all related structures Neck Neck: normal visual inspection Resp Effort & Inspection: normal respiratory effort and able to speak in complete sentences Cardio Rate: regular rate Skin General skin exam: no rashes or lesions noted Neuro General: patient alert and patient oriented x3 Extrem General: full ROM and capillary refill normal Psych Mental Status: mental status grossly normal Course Vital Signs Vital signs: Vital Signs Temperature 37.5 C 08/12/24 12:06 Pulse 87 08/12/24 12:06 Respiratory Rate 12 08/12/24 12:06 Blood Pressure 148/88 H 08/12/24 12:06 Pulse Oximetry 97 08/12/24 12:06 Temperature 37.5 C 08/12/24 12:06 Temperature Source Oral 08/12/24 12:06 Pulse 87 08/12/24 12:06 Respiratory Rate 12 08/12/24 12:06 Blood Pressure 148/88 H 08/12/24 12:06 Blood Pressure Position Sitting 08/12/24 12:06 Pulse Oximetry 97 08/12/24 12:06 Oxygen Delivery Method Room Air 08/12/24 12:06 Oxygen Flow Rate 0 08/12/24 12:06 Pain Level 6 08/12/24 12:06 Medical Decision Making 34-year-old male comes in with 1 day of posterior right calf pain with no falls or trauma. He states he can feel a lump in the posterior right calf. He otherwise feels well denies any chest pain or difficulty breathing. He is well-appearing on exam. His leg is not swollen compared to the left. He does have tenderness in the right mid calf and does have a palpable varicose vein in this area. Intact distal sensation and pulses. I suspect this could be a varicose vein but will obtain a D-dimer as we do not have ultrasound to screen for DVT. He has no erythema or other signs or symptoms to suggest infectious etiology and do not feel other lab work or imaging indicated. Patient's D-dimer is negative. He is stable. Given negative D-dimer we will hold off on anticoagulation and have him return to have an ultrasound done hopefully tomorrow. Return precautions given Quality:SDOH Health Related Social Needs: Health related social needs food insecurity (Z59.41) Health related social needs details none PFSH All Active Problems (Updated 08/12/24 @ 13:15 by James Manuel MD) Right calf pain (Acute) Obesity (BMI 30-39.9) (Acute) Varicose veins of right lower extremity (Acute) Medical History (Updated 08/12/24 @ 13:15 by James Manuel MD) Internal hemorrhoids (03/18/17) Injury of right shoulder and upper arm 2017 no surgery required. Surgical History (Updated 01/05/24 @ 15:31 by Michael Benitez MD) Status post tonsillectomy and adenoidectomy Tonsillectomy and adenoidectomy (11/12/96) Family History (Updated 01/06/24 @ 09:20 by Monse Ashraf) Mother Breast cancer Hypertension Father Asthma Maternal Grandfather Essential hypertension Hyperlipidemia Maternal Grandmother Personal history of malignant neoplasm LYMPHOMA Cancer Hyperlipidemia Paternal Grandfather No problems noted. Paternal Grandmother No problems noted. Social History (Updated 01/11/24 @ 10:48 by Monse Ashraf) Smoking/Tobacco Use Status: Never Second Hand Exposure: Yes Smoking risk assessment performed?: Yes Alcohol Intake: current Alcohol Intake frequency: holidays/special occasions only Alcohol type: beer and hard liquor Details: 6 or more drinks monthly or less Drug use: Never Substance use type: does not use Counseling given: No Household members: significant other and children Communication Needs: None Do you need help understanding health information?: Never Pets and animals: Yes Pets and animals: cat(s) and dog(s) Sexually active: Yes Do you think of yourself as: straight/heterosexual Current gender identity: male What is your relationship status?: living with partner How often do you talk on the phone with friends or family?: once per week How often do you get together with friends or relatives?: once per week How often do you attend faith or mormon services?: decline to answer Do you belong to any clubs or organized social groups?: no Panel score (0-1 are the most socially isolated patients): 1 What type of physical activity do you participate in: none Arlin/Gnosticist: No preference Special arlin needs: No Seatbelt use: always Do you feel safe at home: Yes Do you feel safe in your relationship?: Yes
[2024-08-12 12:22] VITALS: RESP 13
[2024-08-12 13:03] LABS: D-Dimer 397 ng/mlFEU (<500)
[2024-08-12 13:25] VITALS: BP 119/69; PULSE 64; RESP 16; O2SAT 97
[2024-08-12 13:28] VITALS: BP 119/69; PULSE 64; RESP 16; O2SAT 97
== END 2024-08-12 13:33 | disposition home or self-care (01) ==
PROVIDERS: Emergency Provider Emergency Medicine; PCP Family Medicine
DX: I82.811 Embolism and thrombosis of superficial veins of right lower extremity (principal); R03.0 Elevated blood-pressure reading, without diagnosis of hypertension
CPT/HCPCS: 36415; 99283; 85379

== ENCOUNTER 2024-08-13 09:34 | Emergency (ER) | payer OTHER, SELFPAY ==
--- NOTE | 2024-08-13 09:35 | ED.GENADUL_ITS ---
Discharge Plan Disposition Patient Disposition: Home Discharge Details Clinical Impression: Acute superficial venous thrombosis of right lower extremity Primary Care Provider: Michael Benitez ED Provider: William Delaney Home Meds and New Rx's Prescriptions: New rivaroxaban 15 mg (42)- 20 mg (9) tablets,dose pack See Rx Instructions .ROUTE .COMPLEX Qty: 51 0RF Rx Instructions: take one-15 mg tablet twice daily for 21 days, then one-20 mg tablet once daily; must take with meal/food Discharge Instructions Additional Instructions: You were seen in the management for your calf pain. The ultrasound showed that you have a superficial clot in the vein of your calf that measures 10 cm. You have an additional clot measuring 4 cm. Given your family history and the size of your clot you are receiving blood thinners which you should take as directed. As we discussed please avoid any contact sports and avoid biking. While you are taking this medication you are high risk for bleeding. You need to follow- up with your primary care provider within the next 30 days for reassessment. Please return to the emergency room if you develop chest pain worsening pain in your calf or any shortness of breath. For your pain please take medications as follows: 1. Take acetaminophen (Tylenol), 1,000 mg (two 500 mg tabs) every 6 hours HPI General Date/Time Provider Initiated Documentation: 08/13/24 09:35 . HPI Narrative: MDM This is overall quite well-appearing mildly hypertensive 34-year-old male found to have superficial venous thrombosis in his right calf for which he received anticoagulation with rivaroxaban given length of thrombosis greater than 5 cm. No pain out of proportion to suggest necrotizing soft tissue infection. No chest pain nor shortness of breath to suggest PE and patient is neither tachycardic nor hypoxic. His vital signs were notable for hypertension about which I was going to speak with the patient. Unfortunately he left without his paperwork. No erythema to suggest cellulitis. No fluctuance to suggest abscess. His renal function had been checked earlier this year and his GFR was approximately 100 so I did not feel that the patient required repeat assessment of his labs prior to initiation of anticoagulation. I did send his prescription to the pharmacy. In the absence of trauma to his leg I did not feel he required an x-ray. No phlegmasia changes to suggest benefit from thrombectomy. Before he left patient I discussed that he was at high risk for bleeding with his anticoagulation use. We also discussed that he should follow-up with his primary care provider in the next 30 days for repeat assessment with possibility for repeat ultrasound. I sent an electronic message to his primary care provider. Patient was discharged with empiric trial of expectant outpatient management. HPI This is a 34-year-old male with no significant past medical history arrives emergency department after an outpatient duplex study of his right calf. Patient notes that 2 days ago he developed right calf pain. He said that his pain occurred after sitting in a movie theater watching a movie with his daughter. He denies any specific trauma to his right calf. His family history is significant for a DVT and PE in his mother and a blood clot that occurred in his cousin. Denies any fevers chest pain shortness of breath and chills. Exam General: Well-appearing in no acute distress speaking in complete sentences. Head: Normocephalic, atraumatic. Eye: Extraocular eye movements intact. No conjunctival injection. No scleral icterus. Ear, nose, mouth, throat: Grossly normal inspection. Normal voice, handling secretions normally. Neck: Trachea midline. Cardiovascular: Well-perfused distal extremities. Respiratory: Nonlabored respiration. Gastrointestinal: Nondistended abdomen. Musculoskeletal: Right calf with varicose veins that are palpable mildly tender. Right foot warm well-perfused 2+ PT and DP pulses. Full range of motion right calf. No fluctuance. No erythema. Skin: Normal for age and race, grossly normal temperature and turgor. No acute rash. Neurologic: Alert and appropriate, no apparent acute deficits. Psychiatric: Mood and manner are appropriate. Grooming and personal hygiene are appropriate. Related Data Home Medications ?Medication ?Instructions ?Recorded ?Confirmed rivaroxaban 15 mg (42)-20 mg (9) See Rx Instructions PO .COMPLEX 08/13/24 tablets in a starter pack #51 dose pk Previous Rx's ?Medication ?Instructions ?Recorded rivaroxaban 15 mg (42)-20 mg (9) See Rx Instructions PO .COMPLEX 08/13/24 tablets in a starter pack #51 dose pk Allergies Allergy/AdvReac Type Severity Reaction Status Date / Time No Known Allergies Allergy Verified 08/13/24 09:37 General NATALI: 3 Medical Decision Making Quality:SDOH Health Related Social Needs: Health related social needs food insecurity (Z59.41) Health related social needs details none PFSH All Active Problems (Updated 08/13/24 @ 09:56 by William Delaney MD) Acute superficial venous thrombosis of right lower extremity (Acute) Right calf pain (Acute) Obesity (BMI 30-39.9) (Acute) Varicose veins of right lower extremity (Acute) Medical History (Updated 08/13/24 @ 09:56 by William Delaney MD) Internal hemorrhoids (03/18/17) Injury of right shoulder and upper arm 2017 no surgery required. Surgical History (Updated 01/05/24 @ 15:31 by Michael Benitez MD) Status post tonsillectomy and adenoidectomy Tonsillectomy and adenoidectomy (11/12/96) Family History (Updated 01/06/24 @ 09:20 by Monse Ashraf) Mother Breast cancer Hypertension Father Asthma Maternal Grandfather Essential hypertension Hyperlipidemia Maternal Grandmother Personal history of malignant neoplasm LYMPHOMA Cancer Hyperlipidemia Paternal Grandfather No problems noted. Paternal Grandmother No problems noted. Social History (Updated 01/11/24 @ 10:48 by Monse Ashraf) Smoking/Tobacco Use Status: Never Second Hand Exposure: Yes Smoking risk assessment performed?: Yes Alcohol Intake: current Alcohol Intake frequency: holidays/special occasions only Alcohol type: beer and hard liquor Details: 6 or more drinks monthly or less Drug use: Never Substance use type: does not use Counseling given: No Household members: significant other and children Communication Needs: None Do you need help understanding health information?: Never Pets and animals: Yes Pets and animals: cat(s) and dog(s) Sexually active: Yes Do you think of yourself as: straight/heterosexual Current gender identity: male What is your relationship status?: living with partner How often do you talk on the phone with friends or family?: once per week How often do you get together with friends or relatives?: once per week How often do you attend uatsdin or zoroastrianism services?: decline to answer Do you belong to any clubs or organized social groups?: no Panel score (0-1 are the most socially isolated patients): 1 What type of physical activity do you participate in: none Arlin/Sikh: No preference Special arlin needs: No Seatbelt use: always Do you feel safe at home: Yes Do you feel safe in your relationship?: Yes
[2024-08-13 09:36] VITALS: BP 164/93; PULSE 75; RESP 20; TEMP 37.3; O2SAT 97
== END 2024-08-13 10:05 | disposition home or self-care (01) ==
PROVIDERS: Emergency Provider Emergency Medicine; PCP Family Medicine
DX: I82.711 Chronic embolism and thrombosis of superficial veins of right upper extremity (principal)
CPT/HCPCS: 99282

== ENCOUNTER 2024-10-19 08:29 | Emergency (ER) | payer OTHER, SELFPAY ==
[2024-10-19 08:32] VITALS: BP 132/74; PULSE 70; RESP 19; TEMP 36.8; O2SAT 99
--- NOTE | 2024-10-19 08:52 | ED.GENADUL_ITS ---
Discharge Plan Disposition Patient Disposition: Home Condition: Stable Discharge Details Clinical Impression: Varicose veins of right lower extremity, Folliculitis Primary Care Provider: Michael Benitez ED Provider: Moises Vásquez Home Meds and New Rx's Prescriptions: Continued rivaroxaban 20 mg tablet 20 mg PO DAILY Qty: 21 0RF Rx Instructions: must administer with evening meal rivaroxaban 15 mg (42)- 20 mg (9) tablets,dose pack See Rx Instructions .ROUTE .COMPLEX Qty: 51 0RF Rx Instructions: take one-15 mg tablet twice daily for 21 days, then one-20 mg tablet once daily; must take with meal/food Discharge Instructions Instructions: Varicose Veins (DC) Additional Instructions: Unfortunately your ultrasound does not reveal any evidence of deep vein thrombosis. There is further improvement of your prior superficial thrombosis in the calf by 0.7 cm. The small rash appears to be folliculitis. I recommend warm moist compresses as well as avoiding the compression stockings directly over that area increasing friction. Please continue with your Xarelto as directed. Please watch for new or worsening symptoms and return immediately to the ER. Otherwise I recommend contacting your primary care provider to discuss your ER visit, ongoing symptoms, need for outpatient reevaluation. Discharge Data Discharge Date/Time-TO BE ENTERED AT DEPARTURE: 10/19/24 12:28 HPI General Mode of arrival: ambulatory . Date/Time Provider Initiated Documentation: 10/19/24 08:35 . Limitations to Documentation: no limitations . Information obtained by: patient . History of Present Illness 34 year old M presents to the emergency department with the chief complaint of Right leg pain, described as moderate, with intensity rated at 6. Quality is described as aching, and is localized to the right and lower extremity. Patient reports no radiation. Patient started experiencing this week(s) (2) and it has been constant. No relieving factors improve symptom(s), Other factors that worsen symptoms (Direct pressure) . Patient notes no other symptoms.. Patient did receive the following treatments prior to arrival, none Related Data Home Medications ?Medication ?Instructions ?Recorded ?Confirmed rivaroxaban 15 mg (42)-20 mg (9) See Rx Instructions P O .COMPLEX 08/13/24 10/19/24 tablets in a starter pack #51 dose pk rivaroxaban 20 mg tablet 20 mg PO DAILY #21 tabs 09/0710/19/24 Previous Rx's ?Medication ?Instructions ?Recorded rivaroxaban 15 mg (42)-20 mg (9) See Rx Instructions P O .COMPLEX 08/13/24 tablets in a starter pack #51 dose pk rivaroxaban 20 mg tablet 20 mg PO DAILY #21 tabs 09/07 12/31 Allergies Allergy/AdvReac Type Severity Reaction Status Date / Time No Known Allergies Allergy Verified 10/19/24 08:35 General Stated Complaint: Vascular NATALI: 3 Review of Systems Constitutional Constitutional: Denies fever(s) and Denies weakness Cardiovascular Cardiovascular: Denies chest pain and Denies dyspnea Respiratory Respiratory: Denies cough and Denies dyspnea Musculoskeletal Musculoskeletal: Denies arthralgias and Denies numbness Integumentary/Breasts Skin/Breast: Reports rash Neurologic Neurologic: Denies numbness and Denies weakness Hematologic/Lymphatic Hematologic/Lymphatic: Reports easy bleeding and Reports easy bruising Exam Const General: cooperative, healthy appearing, comfortable and no acute distress Orientation: alert and awake HENNY Head: normal to inspection, normocephalic and atraumatic Face and sinus: normal facial exam Mouth: moist mucous membranes Eyes General: appearance normal, both eyes and all related structures Conjunctivae: conjunctivae normal Neck Neck: normal visual inspection, full ROM, no meningeal signs, trachea midline and supple Resp Effort & Inspection: normal respiratory effort and able to speak in complete sentences Auscultation: clear to auscultation bilaterally Cardio Rate: regular rate Rhythm: regular rhythm Skin Rashes: rashes noted Neuro General: patient alert, patient awake, moves all extremities and no focal motor deficits Cognition: normal cognition Speech: speech normal Gait: normal gait Sensory Exam: no sensory deficits noted Extrem General: full ROM and capillary refill normal Other: Right calf, primarily at the superior aspect with varicose veins that are slightly tender to palpation. Also mild soft tissue edema. The remainder of the calf is soft, nontender. Demonstrates full range of motion of his knee. Overlying the varicose veins there is a scant rash consistent with a folliculitis. There is no spreading erythema. No induration, warmth, fluctuance. 2+ pedal pulse. Normal capillary refill. Psych Appearance: grossly normal Mental Status: mental status grossly normal Course Vital Signs Vital signs: Vital Signs Temperature 36.8 C 10/19/24 08:32 Pulse 70 10/19/24 08:32 Respiratory Rate 19 10/19/24 08:32 Blood Pressure 132/74 10/19/24 08:32 Pulse Oximetry 99 10/19/24 08:32 Temperature 36.8 C 10/19/24 08:32 Temperature Source Oral 10/19/24 08:32 Pulse 70 10/19/24 08:32 Respiratory Rate 19 10/19/24 08:32 Blood Pressure 132/74 10/19/24 08:32 Pulse Oximetry 99 10/19/24 08:32 Medical Decision Making This is a 34-year-old male who was diagnosed with DVT of the right lower extremity on 08/13/2024, has been on Xarelto ever since. Has not missed any doses. Denies recent illness or injury. Denies chest pain or shortness of breath. He has been wearing compression stockings at work. Has noticed at the most superior border of the compression stockings a scant or rash developing over the varicose veins. He is also noticed that the varicose veins seem to be more prominent over the past couple of weeks. Notices additional swelling about the soft tissue just proximal to where the compression stockings and. Now feels an ache into his distal hamstring area. Concerned for worsening DVT. Also concerned for the mild rash. Clinically he appears well, nontoxic. Hemodynamically stable. Lungs are clear to auscultation. No chest pain. Exam is consistent with a very localized folliculitis, likely from the friction of the compression stockings. Discussed no indication for antibiotics at this time. Recommend warm compresses and avoiding the friction of the compression stockings. Question if the swelling is simply dependent edema that is now pulling at the proximal region where the compression stockings and. Certainly cannot rule out expanding DVT. Plan to obtain ultrasound of the right lower extremity. Right lower extremity venous ultrasound Slight further improvement in the superficial venous thrombosis in the calf, previously measuring 2.9 cm length and presently measuring 2.2 cm length. There is no evidence of deep venous thrombosis, Discussed in length with the patient. Reassuring examination and ultrasound. Will treat mild folliculitis with warm moist compresses and avoid the compression sock directly over the area. Will monitor this and return for worsening symptoms but at this time no clear indication for antibiotics. Will continue with his anticoagulation which is managed by Dr. Benitez. Did discuss that if his varicosities continue to be bothersome then a referral to vascular may be necessary. Encouraged to return to the ER for new, worsening, or evolving symptoms. All questions were answered. Agree and understand treatment plan. Will call if any changes or concerns. Medical Records Medical records reviewed: Yes I reviewed the patient's medical records. Quality:SDOH Health Related Social Needs: Health related social needs food insecurity Health related social needs details none PFSH All Active Problems (Updated 10/19/24 @ 12:19 by MIRANDA Botello) Folliculitis (Acute) Obesity (BMI 30-39.9) (Acute) Varicose veins of right lower extremity (Acute) Medical History Internal hemorrhoids (03/18/17) Injury of right shoulder and upper arm 2017 no surgery required. Surgical History Status post tonsillectomy and adenoidectomy Tonsillectomy and adenoidectomy (11/12/96) Family History Mother Breast cancer Hypertension Father Asthma Maternal Grandfather Essential hypertension Hyperlipidemia Maternal Grandmother Personal history of malignant neoplasm LYMPHOMA Cancer Hyperlipidemia Paternal Grandfather No problems noted. Paternal Grandmother No problems noted. Social History Smoking/Tobacco Use Status: Never Second Hand Exposure: Yes Smoking risk assessment performed?: Yes Alcohol Intake: current Alcohol Intake frequency: holidays/special occasions only Alcohol type: beer and hard liquor Details: 6 or more drinks monthly or less Drug use: Never Substance use type: does not use Counseling given: No Household members: significant other and children Communication Needs: None Do you need help understanding health information?: Never Pets and animals: Yes Pets and animals: cat(s) and dog(s) Sexually active: Yes Do you think of yourself as: straight/heterosexual Current gender identity: male What is your relationship status?: living with partner How often do you talk on the phone with friends or family?: once per week How often do you get together with friends or relatives?: once per week How often do you attend sikhism or alevism services?: decline to answer Do you belong to any clubs or organized social groups?: no Panel score (0-1 are the most socially isolated patients): 1 What type of physical activity do you participate in: none Arlin/Voodoo: No preference Special arlin needs: No Seatbelt use: always Do you feel safe at home: Yes Do you feel safe in your relationship?: Yes
[2024-10-19 09:33] VITALS: RESP 16
--- NOTE | 2024-10-19 10:30 | DI.US_ITS ---
Exam(s) US LOWER EXTREMITY VENOUS RT EXAM: US LOWER EXTREMITY VENOUS RT CLINICAL HISTORY: hx of dvt, anticoagualted, worsening pain/swelling TECHNIQUE: Grayscale, color, and doppler imaging of the deep venous system of the lower extremity was performed. COMPARISON: US US LOWER EXTREMITY VENOUS RT from 09/27/2024 FINDINGS: There is no evidence of intraluminal thrombus and there is normal compression and augmentation demonstrated within the common femoral vein, femoral vein, and popliteal vein. In the ipsilateral calf the interrogated veins also exhibit normal compression/ augmentation properties. The ipsilateral saphenofemoral junction is patent. With respect of the previously described thrombus in superficial varicose vein in the proximal calf, this presently measures 2.2 cm in length; previously measured 2.9 cm in length. IMPRESSION: 1. Slight further improvement in the superficial venous thrombosis in the calf, previously measuring 2.9 cm length and presently measuring 2.2 cm length. 2. There is no evidence of deep venous thrombosis. DATA REPOSITORY:
[2024-10-19 11:21] VITALS: BP 133/75; PULSE 59; RESP 16; O2SAT 99
[2024-10-19 12:26] VITALS: BP 155/80; PULSE 61; RESP 18; O2SAT 98
== END 2024-10-19 12:28 | disposition home or self-care (01) ==
PROVIDERS: Emergency Provider Physician Assistant; PCP Family Medicine
DX: M79.661 Pain in right lower leg (principal); I83.91 Asymptomatic varicose veins of right lower extremity; L73.9 Follicular disorder, unspecified; I82.811 Embolism and thrombosis of superficial veins of right lower extremity; Z59.41 Food insecurity
CPT/HCPCS: 99284 ×2; 93971

== ENCOUNTER 2025-01-28 07:57 | Outpatient (CLI) | payer OTHER, SELFPAY ==
--- NOTE | 2025-01-29 11:57 | W.NUTRFU ---
Date of service: 01/28/25 Time of Service: 15:30 Nutrition Note NOTE: Vitaliy came in for nutrition visit regarding his goal for weight loss. He shares he has already achieved a 10lb weight loss since the beginning of January by cutting out soda. He would like to continue the trend and get some advice. Vitaliy leaves early for work - sometimes will grab a granola bar or two, eats a more significant amount at first break at work - lately brings in bkfst sandwich to heat up at work. Dinner is the family meal -biggest meal of the day. Reviewed with Vitaliy I felt his routine diet needs more protein and fiber but needs to be careful with optimal protein intake just shy of 200g protein per day - suggested he use whey and collagen to help reach this goal but also keep animal proteins lean and use plant proteins to help contribute to his total without contributing excessive kcals. He has texture concerns with beans so may need to get creative. Reviewed some resources with helping to menu plan around recommended macros: 2500kcals (a 500kcal deficit), with 250g total carbohydrates, 187g total protein, 83g total fat with 35 g or more fiber and <35g added sugar and <25g saturated fat. 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 Emphasized meeting close to protein goal daily, staying under added sugar limit and also getting fiber over 35g. Encouraged more purposeful exercise as he is only ambulatory at this time - stays on feet for work but generally needs more intense activity. Vitaliy has my contact info and told to reach out with any questions. Time Spent in Nutritional Counseling and Treatment: 25 min
== END 2025-01-28 07:58 | disposition home or self-care (01) ==
LOC: DS 07:57
PROVIDERS: PCP Family Medicine; Visit Provider Dietitian, Registered
DX: E66.9 Obesity, unspecified (principal)
CPT/HCPCS: 00123; 97802